=== PATIENT | female | born 1935 | race Caucasian/White ===

== ENCOUNTER → 2019-06-10 09:21 | Outpatient (CLI) | payer OTHER, SELFPAY | PROVIDERS: PCP Student in an Organized Health Care Education/Training Program; Visit Provider Student in an Organized Health Care Education/Training Program | DX: Z13.820 Encounter for screening for osteoporosis (principal); M81.0 Age-related osteoporosis without current pathological fracture; Z78.0 Asymptomatic menopausal state | CPT/HCPCS: 77080; 77081 ==

== ENCOUNTER 2019-06-13 06:03 | Inpatient (IN) | payer OTHER, SELFPAY ==
[2019-06-13] VITALS (17 sets, daily range): BP systolic 67–147; BP diastolic 36–86; PULSE 58–88; RESP 12–18; TEMP 35.7–36.4; O2SAT 91–97; BMI 29.2
[2019-06-13] MEDS: LACTATED RINGERS 1,000 ML 42 ML IV ×2 (07:11→10:07)
[2019-06-13] MEDS: PREGABALIN 75 MG CAPSULE PO (07:18)
[2019-06-13] MEDS: CELECOXIB 200 MG CAPSULE PO (07:18)
[2019-06-13] MEDS: ACETAMINOPHEN 325 MG TABLET 975 MG PO (07:18)
[2019-06-13] MEDS: VANCOMYCIN 1,000 MG/200 ML PIGGYBACK 200 MG IV ×2 (07:19→19:39)
[2019-06-13] MEDS: GENTAMICIN 200 MG in SODIUM CHLORIDE 0.9% 100 ML 105 ML IV (07:34)
--- NOTE | 2019-06-13 07:42 | PM.PREOP ---
Pre-operative Note Interval Note History & Physical reviewed/Exam performed by Physician: Yes Changes to H&P: No
[2019-06-13] MEDS: MIDAZOLAM 2 MG/2 ML VIAL (08:07)
[2019-06-13] MEDS: LIDOCAINE 1% W/EPI 20 ML INJ (08:50)
--- NOTE | 2019-06-13 08:57 | SUR.OPER ---
Beach chair with Maquet shoulder positioner. Lower body on padded OR bed. Head in foam padded head cradle, secured with straps. Non-operative arm secured <90 degrees abduction. Pillow under knees. Safety belt at thigh. Cloth tape over blanket over lower legs.
--- NOTE | 2019-06-13 09:51 | SUR.PREOP ---
Block start time [0800] . Monitoring initiated and maintained throughout procedure. Oxygen and medications given per anesthesiologist instructions. Patient remained stable throughout procedure, no adverse reactions noted. Block end time [0804 ].
--- NOTE | 2019-06-13 10:07 | PM.OP.1 ---
Operative Date/Time/Diagnoses Date of procedure: 06/13/19 Time of procedure: 08:00 Pre-op diagnosis: End-stage arthritis left shoulder Post-op diagnosis: same Procedure & Clinicians Procedure: Left total shoulder arthroplasty Same procedure as scheduled: Yes Indications: End-stage arthritis left shoulder Surgeon: Jones Hanson Clinical Support Tech: [place] Christine Anesthesia Type: General and Peripheral nerve block Operative Notes Findings: End-stage arthritic changes to the left glenohumeral joint with rather large osteophytes on the humeral head and neck as well as glenoid. No sign of any rotator cuff tears. Closure Type: primary Specimen(s): none sent Applied: implant(s) (Size 8 stem 50 x 21 head medium glenoid) Estimated Blood Loss (mL): 100 Blood products transfused: none Procedure in detail: On date of service, Patient was met in the holding area. The operative site was signed and witnessed by the OR staff. The surgeries once again discussed with the patient and any remaining questions they had were answered fully. Patient was taken back to the operating theater and placed on the operating table in a supine position. Great care was taken to ensure that all bony prominences were properly padded. Patient was then placed into the beach chair position. The head and neck were properly positioned and secured. A timeout was performed verifying patient's name, procedure, and the operative site. The upper extremity was then prepped and draped in the normal sterile fashion. Previously, the bony anatomy and incision were marked out as well as injected with Marcaine with epinephrine. A deltopectoral approach was performed. 10 blade was used to incise the skin and fascial tissue. A deep knife was used to continue sharp dissection until the cephalic vein was visualized. The cephalic vein was dissected free allowing us to expose the deltopectoral interval. This interval was then developed. A Tomas elevator was used to free up the deltoid of any scarring both superficially as well as deeply. The vein and the deltoid were taken laterally while the pectoralis was taken medially. This gave us good visualization of the strap muscles. The clavipectoral fascia was removed and the strap muscles were then retracted medially with the pectoralis. This gave us stabilization of the subscapularis. The circumflex vessels were ligated and the subscapularis was sharply excised off the lesser tuberosity and then tagged. Once the subscapularis was released we're able to dislocate the shoulder. Patient had end-stage arthritic changes to the humeral head as well as the glenoid with large osteophytes anterior inferiorly as well as posteriorly. A Ronger was then used to remove the osteophytes. Next, cutting guide was placed and a saw was used to remove the humeral head. Once the head was removed it was templated. A starting awl was then used to find the canal and then the humerus was reamed and broached. Trial stem was placed and a variety of heads were trialed. A protector placed for the osteotomy was then placed and and we turned our attention back to the subscapularis as well as the glenoid. The subscapularis was freed up and a 360? fashion. The degenerative anterior and inferior capsular tissue was removed. This was followed by removing the degenerative labral tissue from around the glenoid as well as the biceps insertion. This gave us good visualization of the glenoid. Glenoid trials were used until we found the appropriate fit and curvature. Next the center hole was drilled followed by reaming of the glenoid. The wound was copiously irrigated after reaming. Next the pegs were drilled and a trial glenoid was impacted into place. Once we were satisfied with the preparation of the glenoid, the final component was cemented into place. This was followed by impaction. We Return to our attention back to the humerus. The protector plate was removed and heads were trialed once again and so we found the appropriate fit. The trials were removed and bone tunnels were made into the humeral neck. #2 FiberWire were passed through the bone tunnels for eventual subscapularis repair. The final stem and head were impacted into place and the shoulder was reduced. It was taken through range of motion and was felt to be stable in both posterior translation as well as external and internal rotation with abduction. The subscapularis was repaired back to the lesser tuberosity through the bone tunnels. This was then reinforced with soft tissue repair. Part of the rotator interval was then closed. A drain was placed and the rest of the wound was closed in a layered fashion. The shoulder was then cleaned dried and dressed and the patient was taken to the PACU in stable condition. Patient will follow our postoperative protocol for total shoulder arthroplasty. Complications: none Post-operative Condition: stable Disposition: PACU Plan for aftercare: Patient will follow our protocol for total shoulder arthroplasty
--- NOTE | 2019-06-13 11:01 | DI.RAD.S_ITS ---
PROCEDURE: XR SHOULDER LT MIN 2V INDICATIONS: TSA TECHNIQUE: 2 views of the shoulder were acquired. COMPARISON: None. FINDINGS: Bones: Postsurgical changes compatible with left shoulder arthroplasty. Orthopedic hardware is in expected positions. No lucency is identified at the bone-hardware interface. No fracture or dislocation. Soft tissues: No suspicious soft tissue calcifications. IMPRESSION: Expected postsurgical change for left shoulder arthroplasty. Dictated by: Lakia Segura MD, PhD on 06/13/2019 at 11:47 Approved by: Lakia Segura MD, PhD on 06/13/2019 at 11:48
--- NOTE | 2019-06-13 11:28 | SUR.PHASEI ---
Patient A/O. Placed patient flat 2 to hypotensive.
--- NOTE | 2019-06-13 11:28 | SUR.PHASEI ---
SBP Greater than 100. OK to transfer. Patient denies nausea. States pain is 3/10 and tolerable.
[2019-06-13] MEDS: LACTATED RINGERS 1,000 ML 125 ML IV ×2 (11:50→19:37)
--- NOTE | 2019-06-13 13:29 | PC.NURSE ---
POST OP ARRIVAL - pt arrived, awake, denies discomfort, no nausea, nel sips coffee in pacu, ra 94%, l ue wearing sling, sensation in 2nd - 5th fingers, does have some numbness l thumb, able to wiggle and move all her digits on command, trace finger edema, wearing sling, ice pack to l shoulder, hemovac compressed w/serosang in tubing, aquacell cdi, calf scds on, later assist x1 person to br w/void 500ml urine, ret to chair and set up for po intake, able feed self, l elbow w/pillow support, fax sent to OR as pt and spouse concerned anti-coag needed, pt had experienced blood clot following a RTKA 10 years ago.
[2019-06-13 14:52] LABS: Estimated Glomerular Filt Rate 59.8 mL/min (>60)
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
[2019-06-13] MEDS: DOCUSATE 100 MG CAPSULE PO (19:37)
[2019-06-13] MEDS: MAGNESIUM HYDROXIDE 30 ML UDC PO (19:37)
[2019-06-14 00:05] VITALS: BP 95/48; PULSE 71; RESP 16; TEMP 36.3; O2SAT 94
[2019-06-14] MEDS: OXYCODONE IR 10 MG TABLET PO ×2 (02:15→06:57)
--- NOTE | 2019-06-14 03:19 | PC.NURSE ---
Blueprint Duplicator Note: 0000: Resting in bed. Vital signs stable. Pt states her pain is 3/10 and declines any medication at this time. Lt shoulder dressing cdi, lt arm sling in place. Fresh ice to lt shoulder. IV in place in rt arm with LR infusing at 125cc/hr. SCDs on.
[2019-06-14] MEDS: LACTATED RINGERS 1,000 ML 125 ML IV (04:36)
[2019-06-14 05:50] VITALS: BP 132/64; PULSE 70; RESP 16; TEMP 36.1; O2SAT 97
[2019-06-14 06:09] LABS: Hematocrit 31.3 % (36-46); Hemoglobin 11.1 g/dL (12.0-16.0); Mean Corpuscular HGB Conc 35.4 % (30-36); Mean Corpuscular Hemoglobin 33.4 PG (26-34); Mean Corpuscular Volume 94.1 fL (80-100); Platelet Count 215 X10^3/uL (150-400); Red Blood Cell Count 3.32 X10^6/uL (4.0-5.2); Red Cell Distribution Width 13.1 % (11.6-14.8); White Blood Cell Count 10.6 X10^3/uL (4.5-11.0)
--- NOTE | 2019-06-14 07:47 | PM.PN.1 ---
Subjective Subjective Date Patient Seen: 06/14/19 Time Patient Seen: 07:47 Interval history: Patient is POD#1 s/p left total shoulder arthroplasty with Dr. Hanson. Block wore off overnight, moderate pain thereafter well controlled with Oxycodone. Has mobilized about the room and worked with PT yesterday. Voiding appropriately and has tolerated a diet. No shortness of breath or chest pains. Exam Vital Signs (past 8 hours): - 06/14/19 00:05 06/14/19 05:50 Temperature 97.4 F L 96.9 F L Pulse Rate 71 70 Respiratory Rate 16 16 Blood Pressure 95/48 L 132/64 Pulse Oximetry 94 97 Oxygen Delivery Method Room Air Oxygen Flow Rate 0 Narrative Exam Narrative: 84 year old female resting comfortably in bed. Alert and oriented in no acute distress. Patient wearing sling on LUE. Aquacel dressing in place is CDI. Patient able to move the hand and wrist appropriately. Sensation intact to light touch. 2+ radial pulse with brisk capillary refill. Objective Labs Result Diagrams: 06/14/19 05:40 06/13/19 14:15 Labs: Laboratory Results - last 24 hr 06/13/19 06/14/19 14:15 05:40 WBC 10.6 RBC 3.32 L Hgb 11.1 L Hct 31.3 L MCV 94.1 MCH 33.4 MCHC 35.4 RDW 13.1 Plt Count 215 Creatinine 0.90 Estimated GFR 59.8 L Assessment & Plan Assessment & Plan narrative: Patient doing well post operatively. Patient will work with PT today prior to discharge. Discontinue drain. Distant history of PE, will give one dose of Lovenox today and transition to ASA 81mg BID at home. Scripts for Oxycodone, Hydroxzine, and ASA provided. Medically stable for discharge later today.
[2019-06-14 09:00] VITALS: BP 122/56; PULSE 75; RESP 18; TEMP 36.6; O2SAT 96
[2019-06-14] MEDS: ACETAMINOPHEN 325 MG TABLET 975 MG PO (09:01)
[2019-06-14] MEDS: DOCUSATE 100 MG CAPSULE PO (09:01)
[2019-06-14] MEDS: ENOXAPARIN 40 MG/0.4 ML SYRINGE SUBCUT (09:02)
--- NOTE | 2019-06-14 11:12 | PC.NURSE ---
Addendum entered by Jennifer Cornelius R.N. 06/14/19 13:15: Pt ready for discharge. Discharge summary packet reviewed with pt and her Danilo at bedside. No voiced concerns. Pt states she already has her f/u appointment with Dr. Hanson. Pt states has all belongings. 3 prescriptions given to pt. Instructed pt on preventing constipation. OTC stool softeners such as Docusate Sodium or Miralax, may ask pharmacist. Pt left unit via wheelchair, unseen by this blog writer at 1207 with FREIGHT FLOW SALES LEADER/party plan sales unit sales leader escort. Original Note: Day Shift- Pt A&OX4, able to make needs known using call light. Left shoulder aquacel dressing CDI. Hemovac emptied for approx 15mls bloody drainage. Removed without difficulty, area cleansed with NS, folded 4X4 gauze placed under tegaderm dressing overlapping onto aquacel due to previous insertion site. LUE sling in place. CMS+, radial pulse palpable, pt denies numbness or tingling. Pt's called unit asking about discharge, he spoke with US, stated was unaware of 1000 training with PT and pt. Danilo arrived around 1105, PT now working with pt. Pain management plan discussed with pt, plan for prn Oxycodone 5mg and prn Tylenol. Tylenol dose at 0900. Encouraged pt to have prn Oxycodone prior to discharge home to [facility], pt agreeable. Pain 4-5/10 at 1105.
[2019-06-14] MEDS: OXYCODONE IR 5 MG TABLET PO (11:35)
--- NOTE | 2019-06-14 13:08 | PT.IPTN ---
Current Diagnoses Primary osteoarthritis, left shoulder (06/13/19) Surgery Performed Operation Date: 06/13/19 07:45 Actual Procedures p Reconstruct shoulder joint(Left) - Jones Hanson MD Physical Therapy Treatment Note M2 PT-IP Current Condition Start: 06/13/19 14:59 Freq: NEEDED Status: Active Protocol: Document 06/13/19 15:48 AW (Rec: 06/13/19 16:19 AW [id number]) Physical Therapy Current Condition Current Condition Evaluation Date 06/13/19 Treatment Diagnosis L TSA, decreased independence with ADL's Precautions Shoulder Precautions Sling,PROM,Internal Rotation to Body,No External Rotation, No Abduction,Forward Flexion to 90 degrees,Pendulums Brace shoulder sling Other Precautions history of PE after surgery Weight Bearing Status Weight Bearing Status Full Weight Bearing M3 PT-IP Subjective Start: 06/13/19 14:59 Freq: NEEDED Status: Active Protocol: Document 06/14/19 11:17 HH (Rec: 06/14/19 12:05 [id number]) Subjective Physical Therapy Visit Type Type Treatment Note Visit Start Time 11:17 Visit Stop Time 11:30 Total Visit Minutes 13 Notes Pt's attended session. 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 Physical Therapy Visit Comments Patient Comments Pt agreeable to participate for armsling training and mobilize with PT Patient Goals Pt hopes to discharge home with her 's assist Therapy Pain Assessment Pain Present Pain Present Denied Pain M4 PT-IP Mobility and Gait Start: 06/13/19 14:59 Freq: NEEDED Status: Active Protocol: Document 06/14/19 11:17 HH (Rec: 06/14/19 12:05 [id number]) PT-Transfer Assessment Sit to and From Stand Sit to and from Stand Independent Equipment Transfer Assistive Device None Orthotic/Prosthetic Devices or Brace: Yes Transfers Transfer Destination Chair Transfer Technique pt ambulated without AD Transfer Ability Level of Assist Independent Comments Mobility Comments Pt was up in chair upon assessment. She completed to sit to stand from chair without using UE. She amb to sink counter and stood in front of it unsupportedly for CG training on armsling placement. She was also able to return to chair after amb independently. Gait Assessment Gait Gait Assistance Required: Independent Distance (Feet) 150 Able to Maintain Weight Bearing Status Yes During Gait Assistive Devices Assistive Device None Orthotic/Prosthetic Devices or Brace: Yes Gait Deviations General Gait Pattern Within Normal Limits Comments Gait Comments Pt amb from her room to stairs with WNL gait pattern. She denies discomfort and was very steady during entire session. Stair Climbing Assessment Evaluation Level of Assist On Stairs Standby Assistance Devices Stair Climbing Assistive Devices Left Railing Technique/Endurance Stair Climbing Direction Ascend and Descend Stair Climbing Technique Step Over Step,Step to Step Number of Steps Climbed 12 Stair Climbing Set # Repetitions (reps) 2 Comments Stair Climbing Comments Pt uses R rail to descend for 12 steps with step to pattern, f/b step over pattern laterally with L rail using R hand. She was very steady overall with SBA only. PT-Balance Assessment Sitting Balance and Reactions Static Sitting Balance Ability Normal Dynamic Sitting Balance Ability Normal Standing Balance and Reactions Static Standing Balance Ability Good Dynamic Standing Balance Ability Good Device Used none M5 PT-IP Objective Assessments Start: 06/13/19 14:59 Freq: NEEDED Status: Active Protocol: Document 06/13/19 15:48 AW (Rec: 06/13/19 16:19 AW [id number]) Orientation Orientation/Cognition Level of Alertness Alert Orientation Name,Date,Place,Situation Language Function Ability No Deficits Noted Safety Awareness Understands Safety Issues Memory Description No Deficits Noted Gross Range of Motion Upper Extremity ROM Assessment Left Impaired Lower Extremity ROM Assessment Within Functional Limits Strength Upper Extremity Strength Assessment Left Impaired Lower Extremity Strength Assessment Within Functional Limits Comments Strength Comments BLE grossly 5/5. Sensation Assessment Sensation Gross Sensation Left UE Impaired Comments Sensation Comments Pt still numb on first digit. Normal light touch sensation digits 2-5. M6 PT-IP Treatment Start: 06/13/19 14:59 Freq: NEEDED Status: Active Protocol: Document 06/14/19 11:17 HH (Rec: 06/14/19 12:05 HH [id number]) Physical Therapy Treatment Exercises Exercises Shoulder Pendulums,Wrist ROM, Hand ROM Education Education Provided Precautions,Weight Bearing Status,Post-Op Packet,Safety Brace Education [place],Patient Other Treatments Other Treatment Performed Discussed pt's on post op precautions and POC. Educated spouse on sling fitting and he was able to candace/doff for pt independently M7 PT-IP Assessment and Plan Start: 06/13/19 14:59 Freq: NEEDED Status: Active Protocol: Document 06/14/19 11:17 (Rec: 06/14/19 12:05 [id number]) PT Summary Assessment and Plan Potential Rehabilitation Potential Excellent Status of Condition at Evaluation Evolving Summary Impairments ROM,Strength,Sensation, Transfers,Gait Progress Towards Goals Safe For Discharge Assessment Summary CG training conducted for this session. Pt's was able to complete armsling fitting for pt safely. Pt was also able to complete stair climbing x 12 steps with one rail safely SBA. She is indepedently for all mobility and ready to be d/c home with 's assistance. Frequency of Treatment Frequency Of Treatment Discharge Recommendations To Nursing Amount of Assist Needed Independent Discharge Recommendations PT Discharge Recommendations Home with Assistance, Outpatient PT
== END 2019-06-14 12:07 | disposition home or self-care (01) | DRG 483 ==
PROVIDERS: Admitting Provider Orthopaedic Surgery; PCP Student in an Organized Health Care Education/Training Program; Visit Provider Orthopaedic Surgery
PROC: 0RRK0JZ Replacement of Left Shoulder Joint with Synthetic Substitute, Open Approach (ICD-10-PCS; CPT 23472; principal; 2019-06-13 07:45)
DX: M19.012 Primary osteoarthritis, left shoulder (principal); Z96.611 Presence of right artificial shoulder joint; M25.712 Osteophyte, left shoulder; Z86.711 Personal history of pulmonary embolism
CPT/HCPCS: 36415; 64450; 73030; 82565; 85027; 97161; 97530; 97535; C1776; J1100; J1650; J2250; J2405; J2704; J3010